=== PATIENT | male | born 1965 | race Two or more races ===

== ENCOUNTER 2016-12-30 15:15 | Emergency (ER) | payer OTHER ==
[~2016-12-30] VITALS: Ht 160 cm; Wt 74.8 kg
[2016-12-30 15:28] VITALS: BP 151/89
--- NOTE | 2016-12-30 15:43 | PHYS DOC ---
Past Medical History Past Medical History: No Pertinent History Past Surgical History: No Surgical History Adult General Chief Complaint Chief Complaint: WRIST PAIN [facility] HPI Patient is a 51 year old who presents emergency department stating that he fell on . He is unsure how he landed on his left wrist. He does have significant swelling of the wrist and hand area. He has not taken anything for pain and discomfort. Patient does state he was seen at a urgent care and had x- rays done and was noted to have a fracture. He denies being placed in a type of splint for immobilization. Patient presents today stating that he is unable to get an appointment for 3 weeks. Patient is Venezuelan-speaking only. He does have a daughter here at this bedside who is interpreting. Patient is right hand dominant. Review of Systems Review of Systems Constitutional: Denies fever or chills [] Eyes: Denies change in visual acuity, redness, or eye pain [] HENT: Denies nasal congestion or sore throat [] Respiratory: Denies cough or shortness of breath [] Cardiovascular: No additional information not addressed in HPI [] GI: Denies abdominal pain, nausea, vomiting, bloody stools or diarrhea [] : Denies dysuria or hematuria [] Musculoskeletal: Denies back pain. left wrist pain and swelling Integument: Denies rash or skin lesions [] Neurologic: Denies headache, focal weakness or sensory changes [] Allergies Allergies Allergies Coded Allergies Type Severity Reaction Last Updated Verified No Known Drug Allergies 12/30/16 No Physical Exam Physical Exam Constitutional: Well developed, well nourished, no acute distress, non-toxic appearance. [] HENT: Normocephalic, atraumatic, bilateral external ears normal, oropharynx moist, no oral exudates, nose normal. [] Eyes: PERRLA, EOMI, conjunctiva normal, no discharge. [] Neck: Normal range of motion, no tenderness, supple, no stridor. [] Cardiovascular:Heart rate regular rhythm, no murmur [] Lungs & Thorax: Bilateral breath sounds clear to auscultation [] Skin: Warm, dry, no erythema, no rash. [] Back: No tenderness Extremities: left wrist tenderness, no cyanosis, no clubbing, ROM intact, no edema. peripheral pulses 2+ cap refill brisk < 2 seconds. Patient with significant swelling noted to the left wrist and hand. 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 Neurologic: Alert and oriented X 3, normal motor function, normal sensory function, no focal deficits noted. [] Psychologic: Affect normal, judgement normal, mood normal. [] Current Patient Data Vital Signs Vital Signs Date Time Temp Pulse Resp B/P Pulse Ox O2 Delivery O2 Flow Rate FiO2 12/30/16 15:28 98.2 77 16 98 Room Air 98.2 EKG EKG [] Radiology/Procedures Radiology/Procedures [][facility] [address] [place] [address] IMAGING REPORT Signed PATIENT: ANNE STEWARD ACCOUNT: [id number] : 1965 LOCATION: ER AGE: 51 SEX: M EXAM STATUS: PRE ER ORD. PHYSICIAN: GORAN ZHENG NP REASON: pain and swelling s/p fall PROCEDURE: WRIST 3V LEFT Three-view left wrist radiographs 12/30/2016 Clinical history: Patient fell 6 days ago with left wrist pain and swelling. PA, lateral and oblique digital radiographs of the left wrist were obtained. An acute comminuted fracture of the distal left radial metaphysis seen. The fracture line does not definitely extend to the radiocarpal joint. There is an associated transverse fracture of the ulnar styloid. The major distal radial fracture fragments are mildly displaced posteriorly. Small bony densities are seen on the lateral radiograph near the volar aspect of the distal left radial metaphysis and adjacent to the dorsal aspect of the carpal bones. These are well-corticated and may represent old fractures. Impression: Acute comminuted fracture of the distal left radial metaphysis with associated fracture of the ulnar styloid. DICTATED and SIGNED BY: ANNMARIE GONZALEZ MD DATE: 12/30/16 1554 CC: GORAN ZHENG NP ~ Course & Med Decision Making Course & Med Decision Making Pertinent Labs and Imaging studies reviewed. (See chart for details) Patient was noted to the have a fracture of the distal portion of the radius. Patient will be placed in a volar splint with a sling. Recommended ice packs on 20 minutes and off 20 minutes several times a day. Elevation as much as possible. Ibuprofen for pain and discomfort every 8 hours with food. [place] for severe pain, this medication will cause drowsiness do not take if you need to be alert and oriented. Followup with orthopedic in 3-5 days. Signs and symptoms to return to emergency department has been provided to patient. Patient agrees with discharge instructions treatment regimen and followup recommendations. [] Dragon Disclaimer Dragon Disclaimer This electronic medical record was generated, in whole or in part, using a voice recognition dictation system. Departure Departure Impression: Primary Impression: Wrist fracture, left Disposition: HOME, SELF-CARE Condition: STABLE Referrals: DAVID MOSS MD Patient Instructions: Arm Sling Use, [id number], Cast or Splint Care, Easy-to -Read, Wrist Fracture Additional Instructions: Ice packs on 20 minutes and off 20 minutes several times a day Elevation as much as possible Keep the splint in place until you followup with orthopedic Wear the sling whenever you are up ambulating Ibuprofen 800 mg every 8 hours with food stop taking if you develop upset stomach [place] for severe pain, this medication will cause drowsiness do not take if you need to be alert and oriented Followup with orthopedic in 3-5 days Return to emergency department as needed for signs and symptoms that become worse. Scripts Hydrocodone/Apap 5-325 ([place] 5-325 Tablet)1 Each Tablet1 Tab PO PRN Q6HRS PRN PAIN #15 TAB Prov:GORAN ZHENG NP 12/30/16 Splinting Splinting : Location: left wrist Hand-Made Type: orthoglass Splint: volar Pre-Proc Neuro Vasc Exam: normal Post-Proc Neuro Vasc Exam: normal GORAN ZHENG NP Dec 30, 2016 15:43
[2016-12-30] MEDS ORDERED: HYDR-971 PO (15:52)
--- NOTE | 2016-12-30 15:59 | RAD ---
Three-view left wrist radiographs 12/30/2016 Clinical history: Patient fell 6 days ago with left wrist pain and swelling. PA, lateral and oblique digital radiographs of the left wrist were obtained. An acute comminuted fracture of the distal left radial metaphysis seen. The fracture line does not definitely extend to the radiocarpal joint. There is an associated transverse fracture of the ulnar styloid. The major distal radial fracture fragments are mildly displaced posteriorly. Small bony densities are seen on the lateral radiograph near the volar aspect of the distal left radial metaphysis and adjacent to the dorsal aspect of the carpal bones. These are well-corticated and may represent old fractures. Impression: Acute comminuted fracture of the distal left radial metaphysis with associated fracture of the ulnar styloid.
== END 2016-12-30 16:26 | disposition home or self-care (01) ==
LOC: ER 15:15
DX: S62.102A Fracture of unspecified carpal bone, left wrist, initial encounter for closed fracture (principal); W19.XXXA Unspecified fall, initial encounter; Y93.89 Activity, other specified; Y99.8 Other external cause status; Y92.89 Other specified places as the place of occurrence of the external cause
CPT/HCPCS: 29125; 73110; 99284-25